=== PATIENT | female | born 1970 | race Caucasian/White ===

== ENCOUNTER 2017-11-27 11:20 | Emergency (ER) | payer MEDICAID ==
[2017-11-27] MEDS: KETOROLAC 15 MG INJ IM (13:38)
== END 2017-11-27 16:49 | disposition home or self-care (01) ==
LOC: FTE 11:20
DX: M54.2 Cervicalgia (principal); M54.5 Low back pain; M54.6 Pain in thoracic spine
CPT/HCPCS: 72040; 72072; 72100; 73030-RT; 73080-RT; 73110-RT; 81025; 96372; 99284-25